=== PATIENT | female | born 1955 | race Caucasian/White ===

== ENCOUNTER 2019-10-08 17:19 | Emergency (ER) | payer BC ==
[~2019-10-08] VITALS: Ht 152.4 cm; Wt 80.7 kg
--- OUTSIDE RECORDS SUMMARY | 2019-10-08 17:22 | XMS REPORT | Continuity of Care Document ---
Author Author [facility] t Organization [facility] Address [address] [place] [address] Phone Unavailable Care Team Providers Care Buttermaker Continuous Churn Name Role Phone Singh JORDAN, William Segundo Attphys Declan TRAMMELL Attphys Unavailable Tim JORDAN, PhD, Guzman Brito Attphys [phone] Problems This patient has no known problems. Allergies, Adverse Reactions, Alerts This patient has no known allergies or adverse reactions. Medications This patient has no known medications. Procedures This patient has no known procedures. Encounters Start Date/Time End Date/Time Encounter Type Admission Type [facility] Care Department Encounter ID Source 2019-06-20 10:37:39 2019-06-20 12:20:33 Office Visit Declan Winters [facility] [id number] 2019-03-08 14:45:28 2019-03-08 14:55:28 Office Visit Daryl Dumont [facility] [id number] Results Test Description Test Time Test Comments Results Result Comments Source FOOT 3 VIEW RT - [facility] 2019-05-03 10:31:00 [facility] [address] [place], [place] [address] Patient Name: ZEV MCCALLUM MR #: [id number] : 1955 Age/Sex: 64/F Req #: [id number] Adm Physician: Ordered by: SHAD TRAMMELL MD Report #: [id number] Location: [facility] Room/Bed: Procedure: [id number] HOPD/FOOT 3 VIEW RT - [facility] Exam Date: 05/03/19 Exam Time: 1024 REPORT STATUS: Signed Exam: Right foot 3 views History: Fall, great toe swelling Comparison: None. Findings: No acute, displaced fracture or dislocation. Appropriate alignment between the medial cuneiform and second metatarsal base in keeping with an intact Lisfranc ligament. Mild degenerative arthrosis at the first metatarsophalangeal and second distal interphalangeal joints. Remaining joint spaces are well- maintained. Soft tissues are unremarkable. Impression: No acute osseous abnormality. Signed by: Dr. Gama Roth M.D. on 05/03/2019 10:34 AM Dictated By: GAMA ROTH MD [id number] Transcribed By: MIRANDA on 05/03/19 1034 COPY TO: SHAD TRAMMELL MD
--- OUTSIDE RECORDS SUMMARY | 2019-10-08 17:22 | XMS REPORT | Summary of Care ---
Author Author [facility] Organization [facility] Address Unknown Phone Unavailable Care Team Providers Care Websphere Commerce Architect Name Role Phone Parvin Brownlee MD PCP Reason for Visit * Reason Comments Hand Injury Encounter Details Care Team Description Date Type Department Sanya Winters MD [address] [place] [address] Hand Injury 06/20/2019 Office Visit [facility] Orthopedic Surgery [address] [facility], [place] [address] Allergies No Known Allergiesdocumented as of this encounter (statuses as of 06/20/2019) Medications End Date Status Medication Sig Dispensed Refills Start Date Active diphenhydrAMINE (BENADRYL Take 25 mg by 0 ALLERGY) 25 MG tablet mouth nightly as needed for Sleep. Active clonazePAM (KLONOPIN Take 1 Tab by 90 Tab 1 WAFER) 0.25 MG oral mouth daily 9 disintegrating tablet as needed (sleep or eyelid myokymia). Active levothyroxine (SYNTHROID) TAKE 1 TABLET 90 Tab 0 75 MCG tabletIndications: BY MOUTH 9 Hypothyroidism, EVERY MORNING unspecified type BEFORE BREAKFAST Active lisinopril (PRINIVIL, TAKE 1 TABLET 90 Tab 0 ZESTRIL) 5 MG BY MOUTH 0 tabletIndications: Benign EVERY DAY essential HTN Active Multiple Vitamin Take 1 Cap by 0 (MULTIVITAMINS) CAPS mouth. 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 [address] (HCCode) 09/25/2015 Reflux 06/03/2015 Hypertension 02/09/2012 Heart murmur 03/02/2011 Systemic lupus erythematosus (HCCode) 03/02/2011 Hypothyroidism 03/02/2011 documented as of this encounter (statuses as of 06/20/2019) Resolved Problems Problem Noted Date Resolved Date Internal derangement of right knee 04/17/2012 Primary localized osteoarthrosis, ankle and foot 2 04/16/2014 Foot pain 03/29/2011 04/16/2014 Palpitations 03/02/2011 04/16/2014 Chest pain 03/02/2011 04/16/2014 documented as of this encounter (statuses as of 06/20/2019) Immunizations Name Administration Dates Next Due Influenza Quad-PF 06/03/2015 Tdap 01/29/2013 documented as of this encounter Social History Date Tobacco Use Types Packs/Day Years Used Never Smoker Smokeless Tobacco: Never Used Drinks/Week oz/Week Comments Alcohol Use occasional, a few ti mes a month Yes Sex Assigned at Date Recorded Not on file Industry Job Start Date Occupation Not on file Not on file Not on file Travel End Travel History Travel Start No recent travel history available. documented as of this encounter Last Filed Vital Signs Reading Time Taken Comments Vital Sign 130/86 06/20/2019 10:38 AM RUBBER FLAP CUTTER Blood Pressure 64 06/20/2019 10:38 AM RUBBER FLAP CUTTER Pulse - - Temperature - - Respiratory Rate - - Oxygen Saturation - - Inhaled Oxygen Concentration 82.6 kg (182 lb) 06/20/2019 10:38 AM RUBBER FLAP CUTTER Weight 152.4 cm (5') 06/20/2019 10:38 AM RUBBER FLAP CUTTER Height 35.54 06/20/2019 10:38 AM RUBBER FLAP CUTTER Body Mass Index documented in this encounter Progress Notes * Alexandra Dockery FNP - 06/20/2019 10:40 AM RUBBER FLAP CUTTER History of Present Illness Meme Hensley is a 64 y.o., , left handed , female who is here for the evaluation of Pain of Right Index finger PIP joint dorsal aspect and DIP joint dorsal aspect. The patients symptoms have been present for 2 months and is progressively worsen ing. She denies known injury. Her finger feels stiff and is sore to touch. She has a history of metastatic breast cancer and was told to monitor joint pain for a sign of bone cancer. She has not had any treatment for this complaint. She do es take advil and this helps. Denies numbness or tingling. Past Medical History has a past medical history of Acid reflux, Adenoma of co ahmet, Arthritis, GERD (gastroesophageal reflux disease), Chalo thyroiditis, H ashimoto's thyroiditis, Hypertension, LBP (low back pain), Osteoarthritis, and P rimary cancer of upper outer quadrant of female breast (HCCode) (09/25/2015). Hospitalizations and Surgeries: has a past surgical history that includes HX C arpal tunnel release (2006); HX Hysterectomy (2004); hx gallbladder removal; HX Skin biopsy (1996); HX Foot surgery (Left, 2013); HX Appendectomy; HX Cholecyste ctomy; HX Carpal tunnel release (Bilateral); HX Hysterectomy; and HX Foot surger y (Left). Medicines: Current Outpatient Medications: clonazePAM (KLONOPIN WAFER) 0.25 MG oral disintegrating tablet, Take 1 Tab by mouth daily as needed (sleep or eyelid myokymia)., Disp: 90 Tab, Rfl: 1 diphenhydrAMINE (BENADRYL ALLERGY) 25 MG tablet, Take 25 mg by mouth nightl y as needed for Sleep., Disp: , Rfl: levothyroxine (SYNTHROID) 75 MCG tablet, TAKE 1 TABLET BY MOUTH EVERY MORNI NG BEFORE BREAKFAST, Disp: 90 Tab, Rfl: 0 lisinopril (PRINIVIL, ZESTRIL) 5 MG tablet, TAKE 1 TABLET BY MOUTH EVERY DA Y, Disp: 90 Tab, Rfl: 0 Multiple Vitamin (MULTIVITAMINS) CAPS, Take 1 Cap by mouth., Disp: , Rfl: Allergies: No Known Allergies Social History: Social History Tobacco Use Smoking status: Never Smoker Smokeless tobacco: Never Used Substance Use Topics Alcohol use: Yes Comment: occasional, a few times a month Drug use: No Family History: Family History Problem Relation Name Age of Onset Lung Cancer Father 65 Lymphoma Father Coronary Artery Disease Neg Hx Diabetes Type II Neg Hx Review of Systems: Negative for headache, dizziness, blurred vision, chest pain, shortness of breath, abdominal pain, dysuria, diarrhea, fevers, chills, nausea or vomiting Physical Examination: General: Well-developed, well-nourished female in no acute distress. Vital Signs: Stable Examination Right upper extremity General: Unremarkable, without swelling or scars. Shoulder: Full active range of motion without tenderness. 2+ brachial artery. Elbow: There is full active range of motion without tenderness. Biceps and tric eps are 5/5. Forearm: There is full pronation and supination without pain. Wrist: There is full active range of motion without tenderness, crepitus or inst ability. Hand: No triggering. Sensation to light touch is intact to all digits. Capillar y refill less than 2 seconds. The thenar and hypothenar muscles are functioning at 5/5. There is full active range of motion in all digits. There is no CMC g rind in the thumb. Tenderness over the dorsal side of the PIP and DIP of the ind ex finger. There is no laxity. Examination Left upper extremity General: Unremarkable, without swelling or scars. Shoulder: Full active range of motion without tenderness. 2+ brachial artery. Elbow: There is full active range of motion without tenderness. Biceps and tric eps are 5/5. Forearm: There is full pronation and supination without pain. Wrist: There is full active range of motion without tenderness, crepitus or inst ability. Hand: No triggering. Sensation to light touch is intact to all digits. Capillar y refill less than 2 seconds. The thenar and hypothenar muscles are functioning at 5/5. There is full active range of motion in all digits. There is no CMC g rind in the thumb. X-Ray Right hand 3 views Moderate degenerative changes about the index and long DIP joints. Some loss of joint space of the ulnar side of the PIP joint of the index finger. There are some cystic changes predominantly in the proximal and m iddle phalanx of the long finger. 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 Recommendations and Plan: -->Discussed diagnosis and treatment plan and all questions answered to the patient's satisfaction and she agrees with this plan. She will use tylenol/ibuprofen as needed. -->She was provided with pennsaid samples to try at home to the finger. --> Encouraged movement to maintain current ROM. --> Follow up this office 6 months, sooner if needed. --> I d/w patient that those cystic changes on XR are likely benign. We will follow this clinically with a repeat XR when she returns in 6months or sooner if her symptom gets worse. This cysts are so small at this point that my concern is low and doesn't compromise structural integrity of bone. Patient verbalized understanding and agree with the plan. ATTENDING PHYSICIAN: EVALUATION AND RECOMMENDATIONS The patient was seen and examined by me today in conjunction with the COSMETICS MACHINE OPERATOR. I a gree with their findings and plan as documented in the note with any exceptions or additions listed. ER FLAP CUTTER documented in this encounter Plan of Treatment Order Schedule Name Type Priority Associated Diag noses Ordered: 06/20/2019 ORT - XR HAND RIGHT 3V ( NC Charge Routine Right hand pain CHARGE ONLY) Health Maintenance Due Date Last Done Comments COLON CANCER SCREENIN1956 COLONOSCOPY MAMMOGRAM EVERY 2 YEARS 1955 BMI FOLLOW UP PLAN 1974 HEPATITIS C SCREENING 1974 HIV SCREENING 1974 CERVICAL CANCER SCREENING 1977 3 YEAR FOLLOW UP FLU VACCINE > 6 MONTHS 11/29/2018 05/17/2018, 06/2015, 06/03/2015 (Declined), Additional history exists TETANUS SHOT (ADULT) 01/29/2023 01/29/2013 documented as of this encounter Goals Goal Patient Associated Recent Progress Patient-Stat Aut hor Goal Type Problems ed? Blood Pressure < 140/90 Blood 130/86 (06/20/2019 No Benson, Pressure 10:38 AM RUBBER FLAP CUTTER) Young Walker MD diabetic diet Diet No Young Knowles MD documented as of this encounter Results * XR HAND RIGHT (COMPLETE) (06/20/2019 10:58 AM RUBBER FLAP CUTTER) Specimen Narrative Performed At For result, please reference physician' s note on the corresponding date. documented in this encounter Visit Diagnoses Diagnosis Right hand pain - Primary Pain in limb documented in this encounter Insurance Type Payer Benefit Subscriber ID Effective Phone Address Plan / Dates Group PPO BLUE CROSS BLUE SHIELD PPO/EPO - xxxxxxxxxxxx 2018-P [address] [employer] resent [id number] [place] [address] documented as of this encounter
[2019-10-08] MEDS ORDERED: KETOROLAC TROMETHAMINE 30 MG/ML VIAL IV STA (18:16)
[2019-10-08] MEDS ORDERED: SODIUM CHLORIDE 0.9% 1000ML 1,000 ML IV STA (18:16)
[2019-10-08] MEDS ORDERED: ONDANSETRON HCL INJ 2MG/ML 2ML 2 MG/ML VIAL IV STA (18:20)
[2019-10-08] MEDS ORDERED: CEFTRIAXONE SOD 1 GM VIAL IV ONE (18:30)
[2019-10-08] MEDS ORDERED: ACETAMINOPHEN 325 MG TAB PO ONE (18:30)
[2019-10-08] MEDS ORDERED: CEFTRIAXONE SOD 1 GM/NS 50 ML 50 ML IV ONE (18:45)
[2019-10-08] MEDS ORDERED: KETOROLAC TROMETHAMINE 30 MG/ML VIAL ONE (19:03)
[2019-10-08] MEDS ORDERED: ONDANSETRON HCL INJ 2MG/ML 2ML 2 MG/ML VIAL ONE (19:04)
[2019-10-08] MEDS ORDERED: CEFTRIAXONE SOD 1 GM VIAL ONE (19:04)
[2019-10-08] MEDS ORDERED: SODIUM CHLORIDE 0.9% 1000ML 1,000 ML ONE (19:04)
--- NOTE | 2019-10-08 19:11 | Diagnostic Imaging Report ---
EXAM: CT Abdomen and Pelvis WITHOUT contrast INDICATION: ^left flank pain ^[id number] ^1848 COMPARISON: CT abdomen and pelvis 07/21/2012, report only available TECHNIQUE: Abdomen and pelvis were scanned utilizing a multidetector helical scanner from the lung base to the pubic symphysis without administration of IV contrast. Absence of intravenous contrast decreases sensitivity for detection of focal lesions and vascular pathology. Coronal and sagittal reformations were obtained. Routine protocol was performed. IV CONTRAST: None. ORAL CONTRAST: None RADIATION DOSE: Total DLP: 733 mGy*cm Estimated effective dose: (DLP x 0.015 x size factor) mSv COMPLICATIONS: None FINDINGS: LINES and TUBES: None. LOWER THORAX: Partially visualized left breast implant. Indeterminate 7 mm solid nodule in the left lower lobe on series 3, image 4. HEPATOBILIARY: Few tiny hypodensities throughout the liver likely cysts. These were described on remote CT. No biliary ductal dilation. GALLBLADDER: Cholecystectomy. SPLEEN: No splenomegaly. PANCREAS: No focal masses or ductal dilatation. ADRENALS: No adrenal nodules KIDNEYS/URETERS: No hydronephrosis. No cystic or solid mass lesions. No stones. GI TRACT: No abnormal distention, wall thickening, or evidence of bowel obstruction. Scattered diverticulosis throughout the sigmoid colon with associated focal wall thickening and surrounding fat stranding at the level of the mid descending colon in the left lower quadrant on series 3, image 79 consistent with acute diverticulitis. Appendix is not visualized. PELVIC ORGANS/BLADDER: Hysterectomy. The urinary bladder is unremarkable. LYMPH NODES: No lymphadenopathy. VESSELS: Unremarkable. PERITONEUM / RETROPERITONEUM: No free air or fluid. BONES: Unremarkable. SOFT TISSUES: Unremarkable. IMPRESSION: 1. Acute nonperforated diverticulitis of the descending colon. Recommend follow-up CT abdomen and pelvis after treatment. 2. No calcified stones in the collecting system, bilaterally. 3. Indeterminate 7 mm solid nodule in the left lower lobe. Recommend CT chest without contrast in 12 months. Signed by: Dr. Renee Ernst M.D. on 10/08/2019 7:07 PM
[2019-10-08] MEDS ORDERED: METRONIDAZOLE 500MG/NS 100ML 100 ML IV ONE (19:30)
--- NOTE | 2019-10-08 19:30 | NUR ---
REC'D REPORT FROM OFF GOING JAN MACIAS RN.
--- NOTE | 2019-10-08 19:38 | Emergency Department Note ---
History of Present Illnes History of Present Illness Chief Complaint: Abdominal Complaints History of Present Illness This is a 64 year old female Chief Complaint Comment LLQ pain with fever since monday night, also c/o nausea no vomitig. pt states she did a vertical Doc visit and was started on Cipro yesterday, no feeling better. . Historian: Patient Arrival Mode: Car Onset (how long ago): day(s) (2) Quality: LLQ PAIN Radiation: Reports non-radiation Severity: moderate Onset quality: gradual Duration (how long): day(s) (2) Timing of current episode: constant Progression: worsening Chronicity: new Context: Denies recent illness, Denies recent surgery, Denies recent imm obilization, Denies recent travel, Denies trauma/injury, Denies new medications, Denies hx of DVT/PE, Denies non-compliance w/ medications, Denies other Relieving factors: none Exacerbating factors: none Associated symptoms: Reports denies other symptoms Treatments prior to arrival: none Past Medical/Family History Physician Review I have reviewed the patient's past medical and family history. Any updates have been documented here. Past Medical History Recent Fever: Yes Clinical Suspicion of Infectio: No New/Unexplained Change in Ment: No Past Medical History: Hypertension, Hypothyroidism, Cancer Other Medical History: Breast Ca Past Surgical History: Cholecysctectomy, Appendectomy, Hysterectomy Other Surgery: Mastectomy Social History Smoking Cessation: Never Smoker Counseling Performed: No Alcohol Use: Occasional Any Illegal Drug Use: No TB Exposure/Symptoms: No Physically hurt or threatened: No Other Last Tetanus: none Any Pre-Existing Lines (PICC,: No Is patient up to date on immun: Yes Last Flu: 2019 Last Pneumovax: unkn Review of Systems Review of Systems Constitutional: Reports no symptoms EENTM: Reports no symptoms Cardiovascular: Reports no symptoms Respiratory: Reports no symptoms Gastrointestinal: Reports as per HPI, Reports abdominal pain, Reports nausea Genitourinary: Reports no symptoms Musculoskeletal: Reports no symptoms Integumentary: Reports no symptoms Neurological: Reports no symptoms Psychological: Reports no symptoms Endocrine: Reports no symptoms Hematological/Lymphatic: Reports no symptoms Review of other systems All other systems reviewed and negative. Physical Exam Related Data Allergies: Coded Allergies: No Known Allergies (Unverified , 12/12/12) Triage Vital Signs Vital Signs Date Time Temp Pulse Resp B/P (MAP) Pulse Ox O2 Delivery O2 Flow Rate FiO2 10/08/19 18:15 100.2 85 148/87 99 Vital signs reviewed: Yes Physical Exam CONSTITUTIONAL Constitutional: Reports well-developed, Reports well-nourished HENT HENT: Reports normocephalic, Reports atraumatic, Reports oropharynx clear/moist, Reports nose normal HENT L/R: Reports left ext ear normal, Reports right ext ear normal EYES Eyes: Reports PERRL, Reports conjunctivae normal NECK Neck: Reports ROM normal PULMONARY Pulmonary: Reports effort normal, Reports breath sounds normal CARDIOVASCULAR Cardiovascular: Reports regular rhythm, Reports heart sounds normal, Reports capillary refill normal, Reports normal rate GASTROINTESTINAL Abdominal: Reports soft, Reports bowel sounds normal, Reports tender (LLQ) GENITOURINARY Genitourinary: Reports exam deferred SKIN Skin: Reports warm, Reports dry MUSCULOSKELETAL Musculoskeletal: Reports ROM normal NEUROLOGICAL Neurological: Reports alert, Reports oriented x 3, Reports no gross motor or sensory deficits PSYCHOLOGICAL Psychological: Reports mood/affect normal, Reports judgement normal Results Laboratory Lab results reviewed: Yes Imaging Imaging results reviewed: Yes Assessment & Plan Medical Decision Making MDM DIVERTICULITIS PYELONEPHRTIS Reassessment Reassessment time: 19:37 Reassessment IMPROVED Assessment & Plan Final Impression: (1) Diverticulitis Depart Disposition: HOME, SELF-CARE Last Vital Signs Date Time Temp Pulse Resp B/P (MAP) Pulse Ox O2 Delivery O2 Flow Rate FiO2 10/08/19 18:15 100.2 85 148/87 99 Medications in the ED Ketorolac Tromethamine 15 mg ONCE STAT IV Last administered on 10/08/19at 19:03; Admin Dose 15 MG; Start 10/08/19 at 18:16; Stop 10/08/19 at 18:31; Status DC Ceftriaxone Sodium 1 gm ONCE ONCE IV ; Start 10/08/19 at 18:30; Stop 10/08/19 at 18:31; Status UNV Acetaminophen 650 mg ONCE ONCE PO ; Start 10/08/19 at 18:30; Stop 10/08/19 at 18:31; Status DC Sodium Chloride 1,000 ml @ 0 mls/hr Q0M STAT IV Last administered on 10/08/19at 19:00; Admin Dose 999 MLS/HR; Start 10/08/19 at 18:16; Stop 10/08/19 at 18:21; Status DC Ondansetron HCl 4 mg NOW STAT IV Last administered on 10/08/19at 19:08; Admin Dose 4 MG; Start 10/08/19 at 18:20; Stop 10/08/19 at 18:31; Status DC Ceftriaxone Sodium 50 ml @ 100 mls/hr ONCE ONCE IV Last administered on 10/08/19at 19:09; Admin Dose 100 MLS/HR; Start 10/08/19 at 18:45; Stop 10/08/19 at 19:14; Status DC Ketorolac Tromethamine 30 mg STK-MED ONCE .ROUTE ; Start 10/08/19 at 19:03; Stop 10/08/19 at 19:01; Status DC Ceftriaxone Sodium 1 gm STK-MED ONCE .ROUTE ; Start 10/08/19 at 19:04; Stop 10/08/19 at 19:01; Status DC Ondansetron HCl 4 mg STK-MED ONCE .ROUTE ; Start 10/08/19 at 19:04; Stop 10/08/19 at 19:01; Status DC Sodium Chloride 1,000 ml @ ud STK-MED ONCE .ROUTE ; Start 10/08/19 at 19:04; Stop 10/08/19 at 19:01; Status DC Metronidazole/ Sodium Chloride 100 ml @ 100 mls/hr ONCE ONCE IV ; Start 10/08/19 at 19:30; Stop 10/08/19 at 20:29; Status CASS COLEMAN MD Oct 08, 2019 19:38
--- NOTE | 2019-10-08 21:20 | NUR ---
DC'D IVSL WITHOUT DIFF. NO REDNESS/SWELLING/BLEEDING TO SITE. CATH INTACT. PT TOLERATED WELL
[2019-10-08 21:25] VITALS: BP 117/78
== END 2019-10-08 21:25 | disposition home or self-care (01) ==
LOC: FSED 17:19
DX: R10.32 Left lower quadrant pain (principal); R11.0 Nausea; K57.32 Diverticulitis of large intestine without perforation or abscess without bleeding; R91.8 Other nonspecific abnormal finding of lung field; I10 Essential (primary) hypertension; E03.9 Hypothyroidism, unspecified; Z85.3 Personal history of malignant neoplasm of breast
CPT/HCPCS: 74176; 80048; 80076; 81003; 85025; 96374; 96375; 96376; 99284; J0696; J1885; J2405; J7030

== ENCOUNTER → 2020-05-05 | Outpatient (CLI) | payer OTHER ==
[~2020-05-05] MED LIST: COVID-19 VACC, MRNA(MODERNA)/PF 100 MCG/0.5 ML VIAL IM ONE
== END ==
LOC: VACCPMC 16:30
DX: Z23 Encounter for immunization (principal); Z20.822 Contact with and (suspected) exposure to COVID-19

== ENCOUNTER → 2020-06-01 | Outpatient (CLI) | payer OTHER | LOC: VACCPMC 10:31 | DX: Z23 Encounter for immunization (principal); Z20.822 Contact with and (suspected) exposure to COVID-19 | CPT/HCPCS: 0012A; 91301 ==